=== PATIENT | female | born 1995 | race American Indian/Alaskan Native ===

== ENCOUNTER 2016-10-31 02:39 | Emergency (ER) | payer MEDICAID ==
[2016-10-31 03:30] VITALS: BP 115/81
[2016-10-31 06:10] LABS: Anion Gap 17 mmol/L; Basophils % (Auto) 0.3 % (0.0-1.8); Blood Urea Nitrogen 7 mg/dL (7-17); Calcium 8.8 mg/dL (8.4-10.2); Carbon Dioxide 23 mmol/L (22-30); Chloride 100.2 mmol/L (98-107); Eosinophils % (Auto) 0.3 % (0.0-4.3); Glucose 101 mg/dL (65-100); Hematocrit 30.8 % (30.3-42.9); Hemoglobin 9.8 gm/dl (10.1-14.3); Mean Corpuscular HGB Conc 32 % (30-34); Platelet Count 214 K/mm3 (140-440); Potassium 3.6 mmol/L (3.6-5.0); Red Blood Count 4.51 M/mm3 (3.65-5.03); Red Cell Distribution Width 14.5 % (13.2-15.2); Sodium 137 mmol/L (137-145); White Blood Count 5.5 K/mm3 (4.5-11.0)
[2016-10-31 06:18] LABS: Mean Corpuscular Hemoglobin 22 pg (28-32); Mean Corpuscular Volume 68 fl (79-97)
[2016-10-31 06:20] LABS: Bilirubin,Urine NEG (Negative); Blood,Urine NEG (Negative); Ketones,Urine TR mg/dL (Negative); Leukocyte Esterase,Urine NEG (Negative); Mucus,Urine 3+ /HPF; Nitrite,Urine NEG (Negative); Protein,Urine <15 mg/dL mg/dL (Negative); Urobilinogen,Urine < 2.0 mg/dL (<2.0)
--- NOTE | 2016-11-01 14:54 | ED Elopement Review ---
ED Pt Elopement review - Results review Lab results: Laboratory Tests 10/31/16 10/31/16 10/31/16 03:30 03:39 03:39 WBC 5.5 RBC 4.51 Hgb 9.8 L Hct 30.8 MCV 68 L MCH 22 L MCHC 32 RDW 14.5 Plt Count 214 Lymph % (Auto) 41.8 H [place] % (Auto) 4.2 Eos % (Auto) 0.3 Baso % (Auto) 0.3 Lymph # 2.3 [place] # 0.2 Eos # 0.0 Baso # 0.0 Seg Neutrophils % 53.4 Seg Neutrophils # 2.9 Sodium 137 Potassium 3.6 Chloride 100.2 Carbon Dioxide 23 Anion Gap 17 BUN 7 Creatinine 0.5 L Estimated GFR > 60 BUN/Creatinine Ratio 14.00 Glucose 101 H Calcium 8.8 HCG, Qual Urine Color Yellow Urine Turbidity Clear Urine pH 6.0 Ur Specific [place] 1.019 Urine Protein <15 mg/dl Urine Glucose (UA) Neg Urine Ketones Tr Urine Blood Neg Urine Nitrite Neg Urine Bilirubin Neg Urine Urobilinogen < 2.0 Ur Leukocyte Esterase Neg Urine WBC (Auto) 6.0 Urine RBC (Auto) 2.0 U Epithel Cells (Auto) 2.0 Urine Mucus 3+ 10/31/16 03:39 WBC RBC Hgb Hct MCV MCH MCHC RDW Plt Count Lymph % (Auto) [place] % (Auto) Eos % (Auto) Baso % (Auto) Lymph # [place] # Eos # Baso # Seg Neutrophils % Seg Neutrophils # Sodium Potassium Chloride Carbon Dioxide Anion Gap BUN Creatinine Estimated GFR BUN/Creatinine Ratio Glucose Calcium HCG, Qual Positive Urine Color Urine Turbidity Urine pH Ur Specific [place] Urine Protein Urine Glucose (UA) Urine Ketones Urine Blood Urine Nitrite Urine Bilirubin Urine Urobilinogen Ur Leukocyte Esterase Urine WBC (Auto) Urine RBC (Auto) U Epithel Cells (Auto) Urine Mucus - Call Back decision Pt Call Back Decision: No action required
== END 2016-10-31 03:40 | disposition left against medical advice (07) ==
LOC: ED 02:39
DX: O21.9 Vomiting of pregnancy, unspecified (principal); R42 Dizziness and giddiness; R51 Headache; Z91.02 Food additives allergy status; Z3A.01 Less than 8 weeks gestation of pregnancy; Z53.21 Procedure and treatment not carried out due to patient leaving prior to being seen by health care provider
CPT/HCPCS: 36415; 80048; 81001; 84703; 85025

== ENCOUNTER 2021-02-13 14:10 | Emergency (ER) | payer MEDICAID ==
[2021-02-13 16:16] VITALS: BP 124/83
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
[2021-02-13] MEDS ORDERED: IBUPROFEN 800 MG TAB PO ONE (19:57)
== END 2021-02-13 21:10 | disposition home or self-care (01) ==
LOC: ED 14:10
DX: M79.10 Myalgia, unspecified site (principal); M25.551 Pain in right hip; R51.9 Headache, unspecified; F31.9 Bipolar disorder, unspecified; F17.200 Nicotine dependence, unspecified, uncomplicated; Z79.1 Long term (current) use of non-steroidal anti-inflammatories (NSAID); Z79.899 Other long term (current) drug therapy; Z88.8 Allergy status to other drugs, medicaments and biological substances; V49.49XA Driver injured in collision with other motor vehicles in traffic accident, initial encounter; Y93.89 Activity, other specified; Y92.410 Unspecified street and highway as the place of occurrence of the external cause; Y99.8 Other external cause status
CPT/HCPCS: 36415; 71046; 84703